=== PATIENT | female | born 1945 | race Caucasian/White ===

== ENCOUNTER 2016-10-15 11:46 | Emergency (ER) | payer MEDICARE ==
[2016-10-15 12:06] VITALS: BP 117/75
[2016-10-15] MEDS ORDERED: AMOX/CLAV 875 MG/125 MG TABLET PO STA (12:45)
--- NOTE | 2016-10-15 12:49 | ED Physician Documentation ---
PD HPI ANIMAL BITE - Stated complaint Stated Complaint: CAT BITE RT HAND/ARM - Chief complaint Chief Complaint: Ext Problem - History obtained from History obtained from: Patient - History of Present Illness Location of injury(ies): Right hand Details of the event: Cat (pet), Bite, Scratch Timing - onset: Yesterday Timing - duration: Days (1) Timing - details: Gradual onset Pain level max: 4 Pain level now: 4 Worsened by: Moving, Palpating Associated symptoms: Swelling, Discolored (redness). No: Weakness, Numbness, Tingling Contributing factors: No: Immunocompromised Similar symptoms before: Has not had sx before Recently seen: Not recently seen - Additional information Additional information: Patient states that she was bit by her cat last night. Noticed redness and swelling to the hand today. Came for evaluation. Review of Systems Constitutional: denies: Fever, Chills GI: denies: Abdominal Pain, Nausea, Vomiting, Diarrhea Musculoskeletal: denies: Neck pain, Back pain Neurologic: denies: Headache PD PAST MEDICAL HISTORY - Past Medical History Past Medical History: Yes Cardiovascular: Hypertension Endocrine/Autoimmune: HyPOthyroidism Other Past Medical History: factor 5 lyden, Pulmonary emboli - Past Surgical History Past Surgical History: Yes General: Cholecystectomy /FERRY HAND: Hysterectomy - Present Medications Home Medications: Ambulatory Orders Medication Instructions Recorded Confirmed Amox/Clav 875/125 [Augmentin] 1 each PO Q12H #14 tablet 10/15/16 Levothyroxine [Synthroid] 112 mcg PO DAILY 10/15/16 10/15/16 Metoprolol Tartrate 75 mg PO DAILY 10/15/16 10/15/16 Warfarin [Coumadin] 5 mg PO DAILY 10/15/16 10/15/16 raNITIdine [Zantac] 150 mg PO BID 10/15/16 10/15/16 - Allergies Allergies/Adverse Reactions: Allergies Allergy/AdvReac Type Severity Reaction Status Date / Time amlodipine besylate * Allergy Rash Verified 10/15/16 11:52 [From Norvasc] felodipine [From Plendil] Allergy Rash Verified 10/15/16 11:52 Iodinated Contrast Media - Allergy Anaphylaxis Verified 10/15/16 11:52 Oral and - Social History Does the pt smoke?: No Smoking Status: Never smoker Does the pt drink ETOH?: Yes Does the pt have substance abuse?: No - Immunizations Immunizations are current?: Yes - POLST Patient has POLST: No PD ED PE NORMAL - Vitals Vital signs reviewed: Yes - General General: Alert and oriented X 3, No acute distress - Neck Neck: Supple, no meningeal sign, No adenopathy - Cardiac Cardiac: RRR - Respiratory Respiratory: No respiratory distress, Clear bilaterally - Derm Derm: Warm and dry - Extremities Extremities: Other (Redness and swelling to the dorsum of the right hand and wrist. No lymphangitic spread. Full range of motion. No evidence of deep space infection of the hand. Neurovascularly intact. Approximately 4 x 5 cm area of erythema.) - Neuro Neuro: Alert and oriented X 3 Results - Vitals Vitals: Vital Signs - 24 hr 10/15/16 11:49 Temperature 36.7 C Heart Rate 53 L Respiratory 16 Rate Blood Pressure 117/75 O2 Saturation 98 Oxygen O2 Source Room air PD MEDICAL DECISION MAKING - ED course Complexity details: considered differential, d/w patient ED course: Patient presents to the emergency department with what appears to be a cat bite to the right hand with secondary infection. Will place her on Augmentin for home and see how she progresses over the next 24 hours. She will return if she worsens, develop fevers or spread of the infection. Patient counseled regarding signs and symptoms for which I believe and urgent re-evaluation would be necessary. Patient with good understanding of and agreement to plan and is comfortable going home at this time This document was made in part using voice recognition software. While efforts are made to proofread this document, sound alike and grammatical errors may occur. td UTD Departure - Departure Disposition: 01 Home, Self Care Clinical Impression: Cellulitis Qualifiers: Site of cellulitis: extremity Site of cellulitis of extremity: upper extremity Laterality: right Qualified Code(s): L03.113 - Cellulitis of right upper limb Cat bite Qualifiers: Encounter type: initial encounter Qualified Code(s): W55.01XA - Bitten by cat, initial encounter Condition: Good Instructions: ED Infec Skin Cellulitis Follow-Up: Provider,Other [Primary Care Provider] - Within 3 Days (for wound check and INR check) Prescriptions: Amox/Clav 875/125 [Augmentin] 1 each PO Q12H #14 tablet Comments: Take all antibiotics until gone. This should improve in the next 24 hours. Return if you worsen. Discharge Date/Time: 10/15/16 13:03
[2016-10-15] MEDS ORDERED: AMOX/CLAV 875 MG/125 MG TABLET PO ONE (12:53)
== END 2016-10-15 13:03 | disposition home or self-care (01) ==
LOC: ED 11:46
DX: S61.451A Open bite of right hand, initial encounter (principal); L03.113 Cellulitis of right upper limb; W55.01XA Bitten by cat, initial encounter; I10 Essential (primary) hypertension; E03.9 Hypothyroidism, unspecified; Z86.711 Personal history of pulmonary embolism; D68.51 Activated protein C resistance
CPT/HCPCS: 99283; A9270

== ENCOUNTER 2023-08-26 11:42 | Emergency (ER) | payer MEDICARE ==
[2023-08-26 11:58] VITALS: BP 165/96; O2SAT 98
--- NOTE | 2023-08-26 12:05 | ED Physician Documentation ---
PD HPI UPPER EXT INJURY - Stated complaint Stated Complaint: RT HAND CAT BITE - Chief complaint Chief Complaint: Wound - History obtained from History obtained from: Patient - History of Present Illness Location: Right, Forearm, Hand Type of injury: Other (bit and scratched by cat) Where injury occurred: Home Timing - onset: Last night Timing - duration: Hours Timing - details: Abrupt onset, Still present Improved by: Rest Worsened by: Moving, Palpating Associated symptoms: Swelling, Discolored. No: Weakness, Numbness Similar symptoms before: Diagnosis (cat bite cellulitis) Recently seen: Not recently seen - Additonal information Additional information: Radha Adrian is a 78-year-old female who owns a cat. Her cat has scratched or bit her previously and she has had to be placed on antibiotic for cat bite cellulitis. She states that she initially had this in 2017 and was seen here. Since that time she has had 4 other episodes requiring antibiotic. Last night she was scratched and bit by her cat and overnight she has developed erythema to the forearm. She has had this previously. Review of Systems Constitutional: denies: Fever, Chills GI: denies: Nausea Skin: reports: Bite / sting Musculoskeletal: reports: Extremity pain. 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 - Present Medications Home Medications: Ambulatory Orders Medication Instructions Recorded Confirmed Levothyroxine [Synthroid] 112 mcg PO DAILY 10/15/16 08/26/23 Metoprolol Tartrate 75 mg PO DAILY 10/15/16 08/26/23 Warfarin [Coumadin] 5 mg PO DAILY 10/15/16 08/26/23 Amox/Clav 875/125 [Augmentin] 1 each PO Q12H #20 tablet 08/26/23 Gabapentin [Neurontin] 100 mg PO TID 08/26/23 08/26/23 - Allergies Allergies/Adverse Reactions: Allergies Allergy/AdvReac Type Severity Reaction Status Date / Time amlodipine besylate * Allergy Rash Verified 08/26/23 11:54 [From Norvasc] felodipine [From Plendil] Allergy Rash Verified 08/26/23 11:54 Iodinated Contrast Media Allergy Anaphylaxis Verified 08/26/23 11:54 [Iodinated Contrast Media - Oral and] - Social History Does the pt smoke?: No Smoking Status: Never smoker Does the pt drink ETOH?: Yes Does the pt have substance abuse?: No - Immunizations Immunizations are current?: Yes - POLST Patient has POLST: No PD ED PE NORMAL - Vitals Vital signs reviewed: Yes (hypertensive ) - General General: Alert and oriented X 3, No acute distress, Well developed/nourished - HEENT HEENT: Atraumatic, PERRL, EOMI - Respiratory Respiratory: No respiratory distress - Derm Derm: Normal color, Warm and dry - Extremities Extremities: Other (There are multiple superficial scratches and puncture wounds to the right forearm and dorsum of the hand. There are Band-Aids placed over the deeper wounds. There is generalized erythema that is mild to the right for earm.) - Neuro Neuro: Alert and oriented X 3, formulator compounder 2-12 intact, No motor deficit, No sensory deficit, Normal speech Eye Opening: Spontaneous Motor: Obeys Commands Verbal: Oriented GCS Score: 15 - Psych Psych: Normal mood, Normal affect Results - Vitals Vitals: Vital Signs - 24 hr 08/26/23 11:49 Temperature 36 C L Heart Rate 69 Respiratory 16 Rate Blood Pressure 165/96 H O2 Saturation 98 Oxygen O2 Source Room air PD Medical Decision Making - ED course Complexity details: considered differential, d/w patient ED course: 78-year-old female bitten and scratched by cat as early signs of cellulitis and she has had this previously. She is up-to-date on her tetanus as of 3 to [address] her on a course of Augmentin. Departure - Departure Disposition: 01 Home, Self Care Instructions: ED Bite Cat Follow-Up: IJEOMA CORDOVA MD [Primary Care Provider] - Prescriptions: Amox/Clav 875/125 [Augmentin] 1 each PO Q12H #20 tablet Comments: Radha, today it looks like you have early cat bite cellulitis and we are expecting you to do well once you start the antibiotic. I have E scribed some Augmentin for you to the right [facility] in [place]. If you have resolution of the redness within the first day of treatment you will only need to treat for 5 days.
== END 2023-08-26 12:15 | disposition home or self-care (01) ==
LOC: ED 11:42
DX: S60.511A Abrasion of right hand, initial encounter (principal); W55.01XA Bitten by cat, initial encounter
CPT/HCPCS: 99282; 99283